=== PATIENT | male | born 1985 | race Caucasian/White ===

== ENCOUNTER 2021-11-26 19:31 | Emergency (ER) | payer OTHER ==
[2021-11-26 20:29] LABS: HEMOGLOBIN 15.8 gm/dl (14.0-17.5); RED BLOOD COUNT 5.36 M/UL (4.20-5.50); WHITE BLOOD COUNT 6.5 K/UL (4.5-11.0)
[2021-11-26 21:03] LABS: BUN/CREATININE RATIO 21 (0-10)
[2021-11-26] MEDS ORDERED: LODINE CAP 300300 MG PO (21:43)
[2021-11-26] MEDS ORDERED: ZOFRAN ODT 4 MG4 MG PO (21:43)
[2021-11-26] MEDS ORDERED: BENTYL 20MG TAB20 MG PO (21:43)
[2021-11-26] MEDS ORDERED: FLORASTOR250 MG PO (21:43)
== END 2021-11-26 23:42 | disposition home or self-care (01) ==
LOC: ER1 19:31
PROVIDERS: Physician Assistant
DX: U07.1 COVID-19 (principal); R10.84 Generalized abdominal pain; R11.2 Nausea with vomiting, unspecified; Z88.0 Allergy status to penicillin; Z88.8 Allergy status to other drugs, medicaments and biological substances; F17.210 Nicotine dependence, cigarettes, uncomplicated
CPT/HCPCS: 0240U; 80053; 81001; 83605; 83690; 85025; 87086; 96374; 96375; 99284; J1885; J2405; Q9967